=== PATIENT | female | born 1955 | race Caucasian/White ===

== ENCOUNTER 2016-11-13 12:59 | Outpatient (CLI) | payer OTHER ==
[2016-11-14] MEDS ORDERED: MULTIPLE VITAMIN PO (16:15)
[2016-11-14] MEDS ORDERED: STOOL SOFTENER100 M1 PO (16:16)
[2016-11-14] MEDS ORDERED: VITAMIN D-31000 UNIT PO (16:16)
[2016-11-14] MEDS ORDERED: VANQUISH PO (16:17)
[2016-11-14] MEDS ORDERED: FERROUS FUMARA324 MG PO (16:18)
== END 2016-11-13 23:00 ==
LOC: LAB SRH 12:59
DX: Z01.812 Encounter for preprocedural laboratory examination (principal); R33.9 Retention of urine, unspecified; E50.9 Vitamin A deficiency, unspecified
CPT/HCPCS: 90047; 90074; 95059

== ENCOUNTER 2016-11-19 08:05 | Day surgery (SDC) | payer OTHER ==
[~2016-11-19] VITALS: Ht 157.5 cm; Wt 69.9 kg
[~2016-11-19 08:05] MED LIST: FERROUS FUMARA324 MG PO; MULTIPLE VITAMIN PO; STOOL SOFTENER100 M1 PO; VANQUISH PO; VITAMIN D-31000 UNIT PO
--- NOTE | 2016-11-19 11:25 | Provider's Discharge Care Plan ---
Problem, Goal, Plan Problem List 1. Urinary retention Goals: Improve function Instructions: Follow up as directed
--- NOTE | 2016-11-19 11:25 | Provider's Discharge Care Plan ---
Problem, Goal, Plan Problem List 1. Urinary retention Goals: Improve function Instructions: Follow up as directed
--- NOTE | 2016-11-19 13:27 | Operative Report ---
Operative Report Date of Surgery: 11/19/16 Preoperate Diagnosis: urinary retention Postoperative Diagnosis: same Surgeon: Carter Mirza MD Procedure Performed: Revision of urethral sling Cystoscopy Anesthesia: General Indications: On 10/03/16, Ana underwent the following Procedure:1. anterior repair with Xenform graft augmentation2. posterior repair 3. high uterosacral ligament vaginal vault suspension and enterocele repair 4. TVT-obturator sling and cystoscopy She has required intermittent self-catheterization and recently was treated for a Proteus UTI. She wishes to have a revision of sling in the OR rather than in the office setting. In addition, she would like the mid-portion of the sling excised rather than just cutting it in the midline, even though this elevates her risk of recurrent stress incontinence. She is aware that recurrent COURT can be treated with physiotherapy or urethral injection. The patient signed the consent form. She agreed with the risks, benefits, and alternatives to surgery. The risks included but not limited to recurrence or persistence voiding dysfunction, need for future more extensive urethrolysis, development of urinary urgency, urgency incontinence, frequency, and need for intermittent self-catheterization or prolonged indwelling catheterization, injury to other organs including bladder, urethra or blood vessels. Need for blood transfusion. Development of vaginal scarring, dyspareunia, recurring pain, hematoma formation, urinary tract infection, cellulitis, necrotizing fascitis, and medical risks including myocardial infarction, stroke or VTE. The patient understood the risks and benefits and consented to surgery. Surgical Technique: The patient was brought to the operating room and was placed under general anesthesia. She was prepped and draped in the normal fashion for vaginal surgery with the legs in Yellofin stirrups. Care was taken to position the patient.. She was given a dose of IV Ancef 1g intraoperatively. 1. Revision of TVT-obturator sling. Bupivicaine 0.25% with [id number] epinephrine was infiltrated along the anterior vaginal wall mucosa at the level of the mid- urethra. A midline vertical incision was made through the anterior vaginal wall at the level of the mid-urethra. During the dissection, the previous TVT-O sling was easily identified. The mid portion of the urethral sling was dissected off the underlying pubourethral tissue by passing a thin hemostat behind the sling. A 1cm portion of the sling was incised at the mid-portion. The vagina was reapproximated with 3-0 vicryl suture in a continuous fashion. A small laceration along the healing posterior segment was approximated with 3-0 Vicryl. 2. Cystoscopy: We then proceeded with cystoscopy. Cystoscopy revealed a normal appearing urethra and bladder. Both ureteric orifices were visualized. There was no inadvertent injury to the urethra. The estimated blood loss was 50 ml. There were no complications. All sponges and instruments were accounted for. The patient was taken to the recovery room in stable condition.
[2016-11-19 14:34] VITALS: BP 119/76
== END 2016-11-19 14:38 | disposition home or self-care (01) ==
LOC: OR SRH 08:05 → SCU SRH 08:06 → OR SRH 10:00
PROVIDERS: Obstetrics & Gynecology
PROC: 0TSD0ZZ Reposition Urethra, Open Approach (ICD-10-PCS; principal; 2016-11-19 10:00)
DX: R33.8 Other retention of urine (principal); D50.8 Other iron deficiency anemias
CPT/HCPCS: 29229; 29240; 50002; 60001; 70002; 80212; 80575; 82956; 84038; 84551